=== PATIENT | female | born 1935 | race Hispanic/Latino ===

== ENCOUNTER 2020-07-04 18:27 | Inpatient (IN) | payer OTHER ==
[~2020-07-04] VITALS: Ht 165.1 cm; Wt 68.4 kg
[~2020-07-04 18:27] MED LIST: LEVO75TA10 PO; PANT40TA25 PO
[2020-07-04] MEDS ORDERED: MORPHINE SULFATE 2 MG/ML 1ML SYG ONE (18:48)
[2020-07-04 19:11] LABS: BASOPHILS % (AUTO) 0.2 % (0.0-5.0); EOSINOPHILS % (AUTO) 0.1 % (0.0-8.0); HEMATOCRIT 39.3 % (36-48); LYMPHOCYTES % (AUTO) 2.9 % (21.0-51.0); MEAN CORPUSCULAR HEMOGLOBIN 31.5 pg (27.0-33.0); MEAN CORPUSCULAR HGB CONC 34.4 g/dL (32.0-36.0); MEAN CORPUSCULAR VOLUME 91.6 fL (79-99); MONOCYTES % (AUTO) 6.9 % (3.0-13.0); NEUTROPHILS % (AUTO) 89.4 % (40.0-77.0); PLATELET COUNT (AUTO) 154 K/uL (130-400); RED BLOOD CELL COUNT(AUTO) 4.29 MIL/uL (4.00-5.50); RED CELL DISTRIBUTION WIDTH 12.9 % (11.0-15.5); WHITE BLOOD COUNT (AUTO) 15.3 K/uL (4.8-10.8)
[2020-07-04 19:36] LABS: CREATININE 0.7 mg/dL (0.5-1.5); POTASSIUM 3.6 mmol/L (3.5-5.1)
[2020-07-04] MEDS ORDERED: MORPHINE SULFATE 4 MG/1ML SYG ONE (19:44)
[2020-07-04 20:42] LABS: APPEARANCE,URINE Clear (CLEAR); BILIRUBIN,URINE Negative (NEGATIVE); COLOR,URINE Yellow (YELLOW); GLUCOSE, URINE (UA) Negative (NEGATIVE); KETONES,URINE Trace mg/dL (NEGATIVE); LEUKOCYTE ESTERASE ,URINE Moderate (NEGATIVE); NITRATE,URINE Negative (NEGATIVE); OCCULT BLOOD,URINE Negative (NEGATIVE); PH,URINE 6.5 (5.0-8.0); PROTEIN,URINE Trace mg/dL (NEGATIVE); UROBILINOGEN,URINE 0.2 mg/dL (0.2-1.0)
[2020-07-04 21:06] LABS: BACTERIA,URINE Moderate /HPF (None Seen); RBC,URINE None Seen /HPF (0-1); SQUAMOUS EPITHELIAL CELL,UR 0-2 /HPF (0-2)
[2020-07-05 04:00] VITALS: BP 131/61
[2020-07-05] MEDS: MORPHINE SULFATE 2 MG/ML 1ML SYG IVP PRN ×2 (08:04→18:37)
[2020-07-05] MEDS: ONDANSETRON HCL 4 MG/2 ML VIAL IVP PRN ×2 (08:04→18:37)
[2020-07-05] MEDS ORDERED: AMLO5TAB9 PO (08:21)
[2020-07-05] MEDS ORDERED: METO25TA6 PO (08:21)
[2020-07-05] MEDS ORDERED: PRAV20TA4 PO (08:21)
[2020-07-05] MEDS ORDERED: AEC81 PO (08:21)
[2020-07-05 08:40] VITALS: BP 134/46
[2020-07-05 11:44] VITALS: BP 127/54
--- NOTE | 2020-07-05 12:11 | NUR ---
SPOKE TO DR MORALEZ ON THE PHONE AND HE STATED PT COULD EAT TODAY, NO SURGERY TODAY AND TO ORDER THE COVID TEST FOR PRE-OP CLEARANCE.
--- NOTE | 2020-07-05 12:21 | NUR ---
COVID SWAB COLLECTED RAPID AND SEND OUT AND GIVEN TO LAB.
--- NOTE | 2020-07-05 14:18 | NUR ---
MET W PATIENT FOR DC PLANNING Spoke to patient at bedside- lives alone, independent, drives, no DME. [facility] is in [place], MD is Yousif Higginbotham, patient changed from Dr. Biswas 2+ years go, moved from her daughter house to 'give them their privacy', states will consider going back, got daughter on the phone, discusse after care at [facility], [facility] in [facility] choice with dr. Higginbotham to follow. will follow up with admitting MD. Addendum: 07/06/20 at 1425 by JANESSA ARELLANO RN Amended: Links added.
--- NOTE | 2020-07-05 16:17 | NUR ---
I SPOKE TO SKYLAR CLARKE FROM [facility] AND INFORMED OF NEED FOR CARDIAC CLEARANCE
[2020-07-05 17:06] VITALS: BP 128/65
--- NOTE | 2020-07-05 17:18 | NUR ---
I HAVE INFORMED DR MARTINEZ THAT PT'S HOME MEDICATIONS ARE NOW ENTERED IN COMPUTER AND READY TO RESTART.
[2020-07-05 19:29] VITALS: BP 126/53
[2020-07-05 23:57] VITALS: BP 133/59
[2020-07-06] MEDS ORDERED: ACETAMINOPHEN 325 MG TAB ONE (03:51)
[2020-07-06 03:53] VITALS: BP 148/69
[2020-07-06] MEDS ORDERED: ACETAMINOPHEN 325 MG TAB PO PRN (04:00)
[2020-07-06 08:52] VITALS: BP 166/70
[2020-07-06] MEDS: MORPHINE SULFATE 2 MG/ML 1ML SYG IVP PRN ×2 (10:04→13:56)
--- NOTE | 2020-07-06 10:43 | NUR ---
HIP FX Addendum: 07/06/20 at 1048 by LOIS OH RN RN Amended: Links added.
[2020-07-06] MEDS ORDERED: ENOXAPARIN SODIUM 30 MG/0.3 ML SQ SCH (12:00)
[2020-07-06] MEDS: METOPROLOL TARTRATE 25 MG TAB PO SCH ×2 (12:18→22:34)
[2020-07-06] MEDS: AMLODIPINE BESYLATE 5 MG TAB PO SCH (12:18)
[2020-07-06] MEDS: ACETAMINOPHEN 325 MG TAB PO PRN ×2 (12:18→18:07)
[2020-07-06 13:30] VITALS: BP 127/77
--- NOTE | 2020-07-06 15:24 | NUR ---
RECEIVED CALL FROM DR OH ,PER REVIEWED ECHO AND PATIENT LOW RISK PER CARDIAC STANDPOINT , OK TO PROCEED WITH SURGERY
[2020-07-06 16:39] VITALS: BP 145/59
[2020-07-06 20:24] VITALS: BP 147/74
[2020-07-06] MEDS: ATORVASTATIN CALCIUM 10 MG TABLET PO SCH (22:34)
[2020-07-07] VITALS (25 sets, daily range): BP systolic 127–159; BP diastolic 40–85
[2020-07-07] MEDS: MORPHINE SULFATE 2 MG/ML 1ML SYG IVP PRN ×3 (00:18→13:42)
[2020-07-07] MEDS: LEVOTHYROXINE 75 MCG TABLET PO SCH (06:17)
[2020-07-07] MEDS: FAMOTIDINE 20MG TAB 20 MG TAB PO SCH (09:00)
[2020-07-07] MEDS: METOPROLOL TARTRATE 25 MG TAB PO SCH ×2 (09:00→19:52)
[2020-07-07] MEDS ORDERED: METOPROLOL TARTRATE 25 MG TAB PO SCH (09:00)
[2020-07-07] MEDS: AMLODIPINE BESYLATE 5 MG TAB PO SCH (09:00)
[2020-07-07] MEDS ORDERED: LIDOCAINE PF 2% 5ML ABBOJECT ONE (10:38)
[2020-07-07] MEDS ORDERED: SUCCINYLCHOLINE CHLORIDE 20 MG/ML 10 ML VIAL ONE (10:38)
[2020-07-07] MEDS ORDERED: ONDANSETRON HCL 4 MG/2 ML VIAL ONE (10:39)
[2020-07-07] MEDS ORDERED: NEOSTIGMINE 5MG/5ML SYR IV ONE (10:39)
[2020-07-07] MEDS ORDERED: PROPOFOL 10 MG/ML 20ML VIAL IV ONE (10:39)
[2020-07-07] MEDS ORDERED: DEXAMETHASONE SOD PHOSPHATE 10MG/ML 1ML VIAL ONE (10:39)
[2020-07-07] MEDS ORDERED: MIDAZOLAM HCL 1 MG/ML 2ML VIAL ONE (10:39)
[2020-07-07] MEDS ORDERED: GLYCOPYRROLATE 1 MG/5 ML SYRINGE ONE (10:39)
[2020-07-07] MEDS ORDERED: ROCURONIUM 10MG/1ML SYR 10 MG/ML ML ONE (10:40)
[2020-07-07] MEDS ORDERED: FENTANYL CITRATE PF 50 MCG/1 ML 2ML VIAL ONE (10:40)
[2020-07-07] MEDS ORDERED: EPHEDRINE SULFATE 50 MG/ML AMPULE ONE (10:42)
[2020-07-07] MEDS ORDERED: ALBUMIN (HUMAN) 5% 500 ML IV ONE (10:48)
--- NOTE | 2020-07-07 12:04 | NUR ---
[facility] CONSULT PATIENT ASSESSED REQUESTED: [facility] RECOMMENDATIONS SUBMITTED AND REPORT GIVEN TO PATIENT'S NURSE. Addendum: 07/07/20 at 1206 by NYLA TREVIÑO LVN Amended: Links added.
[2020-07-07] MEDS: ZOSYN 3.375GM+NS 50ML 50 ML IV SCH ×2 (13:42→19:52)
[2020-07-07] MEDS ORDERED: CEFAZOLIN SODIUM 1 GM VIAL ONE (14:41)
[2020-07-07] MEDS ORDERED: ROPIVACAINE 0.5% 5MG/ML 30ML IJ ONE (16:40)
--- NOTE | 2020-07-07 17:00 | NUR ---
REFERRAL SENT OT [facility] ON 07/06. PLAN FOR DC IN NEXT 48 HRS? IF POST OP COURSE SMOOTH. PENDING PT NOTES IN AM TO BE SENT TO [facility]
[2020-07-07] MEDS ORDERED: KETOROLAC TROMETHAMINE 30MG/ML ONE (17:49)
[2020-07-07] MEDS ORDERED: MEPERIDINE-PF 25 MG/ML SYG ONE (18:02)
[2020-07-07] MEDS ORDERED: HONEY 1 APPL/ML TUBE TP SCH (18:45)
[2020-07-07] MEDS: ATORVASTATIN CALCIUM 10 MG TABLET PO SCH (19:52)
--- NOTE | 2020-07-07 20:00 | NUR ---
assessment /teaching patient awake, alert,ox3, no sob, no c/o pain at this time, encourage deep breathing exercises, left hip dressing d/i, ivf infusing well to right wrist, ble scds in place, teach patient plan of care and expected outcome, patient verbalizes understanding via teach back
[2020-07-07] MEDS: CEFAZOLIN SODIUM 1 GM VIAL IVP SCH (21:55)
[2020-07-08 04:00] VITALS: BP 130/60
[2020-07-08] MEDS: CEFAZOLIN SODIUM 1 GM VIAL IVP SCH (05:10)
[2020-07-08] MEDS: ZOSYN 3.375GM+NS 50ML 50 ML IV SCH ×3 (05:10→21:44)
[2020-07-08] MEDS: LEVOTHYROXINE 75 MCG TABLET PO SCH (05:13)
[2020-07-08] MEDS: AMLODIPINE BESYLATE 5 MG TAB PO SCH (07:55)
[2020-07-08] MEDS: FAMOTIDINE 20MG TAB 20 MG TAB PO SCH (07:55)
[2020-07-08] MEDS: METOPROLOL TARTRATE 25 MG TAB PO SCH ×2 (07:55→19:50)
[2020-07-08 08:00] VITALS: BP 129/49
[2020-07-08 11:00] VITALS: BP 122/68
[2020-07-08 16:00] VITALS: BP 129/51
[2020-07-08] MEDS: APIXABAN 2.5 MG TABLET PO SCH (19:50)
[2020-07-08] MEDS: ATORVASTATIN CALCIUM 10 MG TABLET PO SCH (19:51)
[2020-07-08] MEDS: ACETAMINOPHEN 325 MG TAB PO PRN (19:52)
[2020-07-08 20:00] VITALS: BP 125/52
--- NOTE | 2020-07-08 20:00 | NUR ---
assessment patient awake, alert, ox3, no sob, encourage deep breathing exercises, dressing left lateral hip d/i, ble scds in place, encourage ble dorsiflexion, teach patient plan of care and expected outcome, patient verbalizes understanding via teach back
[2020-07-08 23:34] VITALS: BP 137/67
[2020-07-09 03:59] LABS: BASOPHILS % (AUTO) 0.5 % (0.0-5.0); EOSINOPHILS % (AUTO) 1.8 % (0.0-8.0); HEMATOCRIT 30.8 % (36-48); LYMPHOCYTES % (AUTO) 17.6 % (21.0-51.0); MEAN CORPUSCULAR HEMOGLOBIN 31.2 pg (27.0-33.0); MEAN CORPUSCULAR HGB CONC 33.8 g/dL (32.0-36.0); MEAN CORPUSCULAR VOLUME 92.5 fL (79-99); MONOCYTES % (AUTO) 13.8 % (3.0-13.0); NEUTROPHILS % (AUTO) 65.7 % (40.0-77.0); PLATELET COUNT (AUTO) 143 K/uL (130-400); RED BLOOD CELL COUNT(AUTO) 3.33 MIL/uL (4.00-5.50); WHITE BLOOD COUNT (AUTO) 6.2 K/uL (4.8-10.8)
[2020-07-09 04:00] VITALS: BP 132/71
[2020-07-09 04:04] LABS: CREATININE 0.7 mg/dL (0.5-1.5); POTASSIUM 3.7 mmol/L (3.5-5.1)
[2020-07-09] MEDS: ZOSYN 3.375GM+NS 50ML 50 ML IV SCH ×3 (05:02→19:14)
[2020-07-09] MEDS: LEVOTHYROXINE 75 MCG TABLET PO SCH (06:09)
--- NOTE | 2020-07-09 06:10 | NUR ---
ABRASIONS ABRASIONS RIGHT UPPER BACK OPEN, NO DRAINAGE NOTED AND PINK, APPLY MEDIHONEY TO ABRASIONS AND COVER WITH ALLEVYN PATCH
[2020-07-09] MEDS: ACETAMINOPHEN 325 MG TAB PO PRN ×2 (06:49→19:18)
[2020-07-09 08:00] VITALS: BP 136/90
[2020-07-09] MEDS: METOPROLOL TARTRATE 25 MG TAB PO SCH ×2 (08:57→19:13)
[2020-07-09] MEDS: APIXABAN 2.5 MG TABLET PO SCH ×2 (08:57→19:13)
[2020-07-09] MEDS: AMLODIPINE BESYLATE 5 MG TAB PO SCH (08:57)
[2020-07-09] MEDS: FAMOTIDINE 20MG TAB 20 MG TAB PO SCH (08:57)
[2020-07-09 11:00] VITALS: BP 110/47
--- NOTE | 2020-07-09 12:27 | NUR ---
[facility] update: [facility], requesting updated clinical be faxed. states auth still pending. Will follow up w ins in am. Md progress notes/PT notes/EMR/COVID results faxed. CM to continue to follow.
[2020-07-09] MEDS ORDERED: LACTULOSE 20 GM/30 ML UDCUP ONE (12:35)
[2020-07-09 16:00] VITALS: BP 143/58
[2020-07-09] MEDS: ATORVASTATIN CALCIUM 10 MG TABLET PO SCH (19:13)
[2020-07-09] MEDS: MORPHINE SULFATE 2 MG/ML 1ML SYG IVP PRN (19:18)
[2020-07-09 19:54] VITALS: BP 148/62
[2020-07-09] MEDS: HYDROMORPHONE HCL 2 MG/ML VIAL IVP PRN (23:46)
[2020-07-09 23:55] VITALS: BP 124/77
[2020-07-10] MEDS: HYDROMORPHONE HCL 2 MG/ML VIAL IVP PRN ×7 (00:56→22:53)
[2020-07-10] MEDS: MORPHINE SULFATE 2 MG/ML 1ML SYG IVP PRN (02:51)
[2020-07-10 03:38] VITALS: BP 143/58
[2020-07-10] MEDS: ZOSYN 3.375GM+NS 50ML 50 ML IV SCH ×3 (04:43→22:53)
[2020-07-10] MEDS: LEVOTHYROXINE 75 MCG TABLET PO SCH (05:54)
[2020-07-10 08:25] VITALS: BP 157/77
--- NOTE | 2020-07-10 08:39 | NUR ---
ANTICIPATING DC TODAY TO [facility] VIA EMS, CIERA RONDON CM TO FOLLOW UP WITH [facility], FACILITY Addendum: 07/10/20 at 0840 by JANESSA ARELLANO RN CM Amended: Links added.
[2020-07-10] MEDS: AMLODIPINE BESYLATE 5 MG TAB PO SCH (08:46)
[2020-07-10] MEDS: METOPROLOL TARTRATE 25 MG TAB PO SCH ×2 (08:46→19:16)
[2020-07-10] MEDS: FAMOTIDINE 20MG TAB 20 MG TAB PO SCH (08:47)
[2020-07-10] MEDS: APIXABAN 2.5 MG TABLET PO SCH ×2 (08:47→19:16)
[2020-07-10] MEDS: ACETAMINOPHEN 325 MG TAB PO PRN ×2 (10:43→19:17)
[2020-07-10 12:00] VITALS: BP 154/58
[2020-07-10 16:55] VITALS: BP 125/51
[2020-07-10] MEDS: ATORVASTATIN CALCIUM 10 MG TABLET PO SCH (19:16)
[2020-07-10 19:40] VITALS: BP 131/54
[2020-07-10 23:47] VITALS: BP 127/67
[2020-07-11] MEDS: HYDROMORPHONE HCL 2 MG/ML VIAL IVP PRN ×4 (00:13→05:08)
[2020-07-11 03:55] VITALS: BP 129/47
[2020-07-11] MEDS: ZOSYN 3.375GM+NS 50ML 50 ML IV SCH ×2 (04:28→13:01)
[2020-07-11] MEDS: LEVOTHYROXINE 75 MCG TABLET PO SCH (05:08)
[2020-07-11 08:43] VITALS: BP 150/68
[2020-07-11] MEDS: AMLODIPINE BESYLATE 5 MG TAB PO SCH (09:36)
[2020-07-11] MEDS: FAMOTIDINE 20MG TAB 20 MG TAB PO SCH (09:36)
[2020-07-11] MEDS: APIXABAN 2.5 MG TABLET PO SCH (09:36)
[2020-07-11] MEDS: METOPROLOL TARTRATE 25 MG TAB PO SCH (09:41)
--- NOTE | 2020-07-11 11:28 | NUR ---
RDSCREEN - LOS X 7 Pt admitted with L-Hip Fracture. POD # 4. Pt tolerating Regular diet order with no report of GI distress. Fair PO intake at 50%. NG 108, Ca 8.1. Recommend Ensure BID RD to continue to monitor. Please notify as additional nutrition concerns arise. Thank you.
[2020-07-11 12:00] VITALS: BP 135/51
== END 2020-07-11 18:50 | DRG 470 ==
LOC: EDH 18:27 → EDHIP 20:28 → 3AH 07-05 02:16
PROVIDERS: ADMIT Internal Medicine; ATTEND Internal Medicine
PROC: 0SRS039 Replacement of Left Hip Joint, Femoral Surface with Ceramic Synthetic Substitute, Cemented, Open Approach (ICD-10-PCS; principal; 2020-07-09)
DX: S72.002A Fracture of unspecified part of neck of left femur, initial encounter for closed fracture (principal); N39.0 Urinary tract infection, site not specified; Z16.12 Extended spectrum beta lactamase (ESBL) resistance; E03.9 Hypothyroidism, unspecified; K21.9 Gastro-esophageal reflux disease without esophagitis; E78.5 Hyperlipidemia, unspecified; I10 Essential (primary) hypertension; Z87.11 Personal history of peptic ulcer disease; Z87.19 Personal history of other diseases of the digestive system; Z20.828 Contact with and (suspected) exposure to other viral communicable diseases; W18.39XA Other fall on same level, initial encounter; Y93.89 Activity, other specified; Y92.89 Other specified places as the place of occurrence of the external cause; Y99.8 Other external cause status
CPT/HCPCS: 36415; 71045; 73502; 73503; 80048; 81001; 84484; 85025; 87077; 87088; 87186; 87426; 93005; 93306; 97039; C1776; G0378; J0330; J0690; J1100; J1170; J1650; J1885; J2001; J2175; J2250; J2270; J2405; J2543; J2704; J2710; J2795; J3010; J3490; J7030; P9045; U0003

== ENCOUNTER 2023-08-26 14:25 | Emergency (ER) | payer OTHER ==
[~2023-08-26] VITALS: Ht 162.6 cm; Wt 63.5 kg
[~2023-08-26 14:25] MED LIST changes: +AEC81 PO; +AMLO-257 PO; +METO25TA6 PO; -PANT40TA25 PO; +PANT40TA54 PO; +PRAV20TA4 PO
[2023-08-26 17:03] LABS: BASOPHILS # (AUTO) 0.06 K/uL (0.00-0.20); BASOPHILS % (AUTO) 0.8 % (0.0-5.0); EOSINOPHILS # (AUTO) 0.11 K/uL (0.00-0.70); EOSINOPHILS % (AUTO) 1.4 % (0.0-8.0); HEMATOCRIT 40.7 % (36-48); IMMATURE GRANULOCYTE ABSOLUTE 0.06 K/uL (0-1); LYMPHOCYTES # (AUTO) 0.6 K/uL (1.0-4.8); LYMPHOCYTES % (AUTO) 8.1 % (21.0-51.0); MEAN CORPUSCULAR HEMOGLOBIN 32.1 pg (27.0-33.0); MEAN CORPUSCULAR HGB CONC 33.7 g/dL (32.0-36.0); MEAN CORPUSCULAR VOLUME 95.3 fL (79-99); MONOCYTES # (AUTO) 0.6 K/uL (0.1-1.0); MONOCYTES % (AUTO) 7.1 % (3.0-13.0); NEUTROPHILS # (AUTO) 6.5 K/uL (1.8-7.7); NEUTROPHILS % (AUTO) 81.8 % (40.0-77.0); PLATELET COUNT (AUTO) 202 K/uL (130-400); RED BLOOD CELL COUNT(AUTO) 4.27 MIL/uL (4.00-5.50); RED CELL DISTRIBUTION WIDTH 13.2 % (11.0-15.5); WHITE BLOOD COUNT (AUTO) 7.9 K/uL (4.8-10.8)
[2023-08-26 17:16] LABS: CREATININE 0.9 mg/dL (0.5-1.5); POTASSIUM 4.2 mmol/L (3.5-5.1)
[2023-08-26 17:20] LABS: ALBUMIN 3.8 g/dL (3.5-5.0); BILIRUBIN,TOTAL 0.3 mg/dL (0.2-1.0)
[2023-08-26] MEDS ORDERED: ACETAMINOPHEN 325 MG TAB PO ONE (18:00)
[2023-08-26 18:38] LABS: INR < 0.93 (0.85-1.15); PROTHROMBIN TIME 10.8 SEC (9.6-11.6)
[2023-08-26 18:39] LABS: PARTIAL THROMBOPLASTIN TIME 33.6 SEC (26.3-35.5)
[2023-08-26] MEDS ORDERED: NEOM28.36 TP (19:03)
[2023-08-26 19:04] VITALS: BP 128/61; PULSE 82; RESP 16; O2SAT 99
== END 2023-08-26 19:24 | disposition home or self-care (01) ==
LOC: EDH 14:25
DX: S00.81XA Abrasion of other part of head, initial encounter (principal); E11.9 Type 2 diabetes mellitus without complications; I10 Essential (primary) hypertension; E03.9 Hypothyroidism, unspecified; X58.XXXA Exposure to other specified factors, initial encounter; Y93.9 Activity, unspecified; Y92.89 Other specified places as the place of occurrence of the external cause; Y99.8 Other external cause status
CPT/HCPCS: 36415; 70450; 71045; 80053; 82550; 83874; 84484; 85025; 85610; 85730; 93005

== ENCOUNTER 2024-05-27 15:45 | Observation (INO) | payer OTHER ==
[~2024-05-27] VITALS: Ht 165.1 cm; Wt 65.1 kg
[~2024-05-27 15:45] MED LIST changes: +NEOM28.36 TP
[2024-05-27] MEDS: ACETAMINOPHEN 325 MG TAB PO PRN (16:48)
[2024-05-27] MEDS: ONDANSETRON 4MG TABLET PO PRN (16:48)
[2024-05-27 16:54] LABS: BASOPHILS # (AUTO) 0.06 K/uL (0.00-0.20); BASOPHILS % (AUTO) 1.1 % (0.0-5.0); EOSINOPHILS # (AUTO) 0.26 K/uL (0.00-0.70); HEMATOCRIT 37.8 % (36-48); IMMATURE GRANULOCYTE ABSOLUTE 0.03 K/uL (0-1); LYMPHOCYTES # (AUTO) 0.9 K/uL (1.0-4.8); LYMPHOCYTES % (AUTO) 17.4 % (21.0-51.0); MEAN CORPUSCULAR HEMOGLOBIN 32.1 pg (27.0-33.0); MEAN CORPUSCULAR HGB CONC 33.3 g/dL (32.0-36.0); MEAN CORPUSCULAR VOLUME 96.4 fL (79-99); MONOCYTES # (AUTO) 0.5 K/uL (0.1-1.0); MONOCYTES % (AUTO) 10.3 % (3.0-13.0); NEUTROPHILS # (AUTO) 3.4 K/uL (1.8-7.7); NEUTROPHILS % (AUTO) 65.6 % (40.0-77.0); PLATELET COUNT (AUTO) 176 K/uL (130-400); RED BLOOD CELL COUNT(AUTO) 3.92 MIL/uL (4.00-5.50); RED CELL DISTRIBUTION WIDTH 13.7 % (11.0-15.5); WHITE BLOOD COUNT (AUTO) 5.2 K/uL (4.8-10.8)
[2024-05-27 17:06] LABS: HEMOGLOBIN A1C 5.1 % (4.0-6.0)
[2024-05-27 17:17] LABS: B-TYPE NATRIURETIC PEPTIDE 307 pg/mL (0-100); CREATININE 0.9 mg/dL (0.5-1.0); POTASSIUM 4.3 mmol/L (3.5-5.1)
[2024-05-27 17:27] LABS: BILIRUBIN,TOTAL 0.5 mg/dL (0.2-1.0); TOTAL PROTEIN, SERUM 7.5 g/dL (6.0-8.3)
[2024-05-27 17:41] LABS: CHOLESTEROL 176 mg/dL (<200); HDL CHOLESTEROL 74 mg/dL (35-85); LDL DIRECT 92 mg/dL (0-99); TRIGLYCERIDES 96 mg/dL (30-200)
[2024-05-27] MEDS ORDERED: PRAV20TA4 PO (17:55)
[2024-05-27] MEDS ORDERED: LOSA100T59 PO (17:58)
[2024-05-27] MEDS ORDERED: ALEN70TA80 PO (18:01)
[2024-05-28 08:08] LABS: BASOPHILS # (AUTO) 0.04 K/uL (0.00-0.20); BASOPHILS % (AUTO) 0.8 % (0.0-5.0); EOSINOPHILS # (AUTO) 0.26 K/uL (0.00-0.70); HEMATOCRIT 38.4 % (36-48); IMMATURE GRANULOCYTE ABSOLUTE 0.03 K/uL (0-1); LYMPHOCYTES # (AUTO) 0.9 K/uL (1.0-4.8); LYMPHOCYTES % (AUTO) 17.8 % (21.0-51.0); MEAN CORPUSCULAR HEMOGLOBIN 30.9 pg (27.0-33.0); MEAN CORPUSCULAR HGB CONC 33.1 g/dL (32.0-36.0); MEAN CORPUSCULAR VOLUME 93.4 fL (79-99); MONOCYTES # (AUTO) 0.6 K/uL (0.1-1.0); MONOCYTES % (AUTO) 11.2 % (3.0-13.0); NEUTROPHILS # (AUTO) 3.4 K/uL (1.8-7.7); NEUTROPHILS % (AUTO) 64.6 % (40.0-77.0); PLATELET COUNT (AUTO) 170 K/uL (130-400); RED BLOOD CELL COUNT(AUTO) 4.11 MIL/uL (4.00-5.50); RED CELL DISTRIBUTION WIDTH 13.9 % (11.0-15.5); WHITE BLOOD COUNT (AUTO) 5.2 K/uL (4.8-10.8)
[2024-05-28 08:25] LABS: ALBUMIN 3.8 g/dL (3.5-5.0); BILIRUBIN,TOTAL 0.4 mg/dL (0.2-1.0); CREATININE 0.6 mg/dL (0.5-1.0); POTASSIUM 4.1 mmol/L (3.5-5.1); TOTAL PROTEIN, SERUM 7.3 g/dL (6.0-8.3)
[2024-05-28] MEDS: ENOXAPARIN SODIUM 30 MG/0.3 ML SQ SCH (08:46)
[2024-05-28] MEDS: CLONIDINE HCL 0.1 MG TABLET PO PRN (08:46)
[2024-05-28 15:37] VITALS: BP 119/42; PULSE 51; RESP 14; O2SAT 97
== END 2024-05-28 15:37 | disposition home or self-care (01) ==
LOC: EDH 15:45 → EDHIP 16:27 → INTOOBSV 16:27 → 2DH 05-28 12:04 → EDHIP 05-28 12:46
PROVIDERS: ADMIT Internal Medicine Infectious Disease; ATTEND Internal Medicine Infectious Disease
DX: I16.0 Hypertensive urgency (principal); I10 Essential (primary) hypertension; K21.9 Gastro-esophageal reflux disease without esophagitis; M19.90 Unspecified osteoarthritis, unspecified site; Z79.899 Other long term (current) drug therapy
CPT/HCPCS: 83036; 84484 ×3; 80061; 80053 ×2; 83880; 85025 ×2; 36415 ×2; 71045; 96372; 83735; G0378 ×23; G0379; Q0162; J1650

== ENCOUNTER → 2024-07-06 | Outpatient (CLI) | payer OTHER ==
[~2024-07-06] MED LIST changes: +ALEN70TA80 PO; -AMLO-257 PO; +AMLO-258 PO; +ERGO500093 PO; -LEVO75TA10 PO; +LEVO88CA4 PO; +LOSA100T59 PO; -METO25TA6 PO; +MULT-1103 PO; -NEOM28.36 TP; -PANT40TA54 PO
== END | disposition home or self-care (01) ==
LOC: SHCH 13:04
PROVIDERS: ATTEND Student in an Organized Health Care Education/Training Program
DX: R55 Syncope and collapse (principal)
CPT/HCPCS: 93306